=== PATIENT | male | born 1940 | race Caucasian/White ===

== ENCOUNTER → 2017-01-10 | Outpatient (CLI) | payer MEDICARE, BC | END | disposition home or self-care (01) | LOC: PCVCIMAG 08:02 | PROVIDERS: ATTEND Internal Medicine Cardiovascular Disease | DX: I10 Essential (primary) hypertension (principal); E78.00 Pure hypercholesterolemia, unspecified | CPT/HCPCS: 93325; 93351 ==

== ENCOUNTER → 2018-02-20 | Outpatient (CLI) | payer MEDICARE, BC | END | disposition home or self-care (01) | LOC: PCVCIMAG 13:51 | DX: I10 Essential (primary) hypertension (principal); E78.5 Hyperlipidemia, unspecified; I25.10 Atherosclerotic heart disease of native coronary artery without angina pectoris | CPT/HCPCS: 93325; 93351 ==

== ENCOUNTER → 2018-12-11 | Outpatient (CLI) | payer MEDICARE, BC | END | disposition home or self-care (01) | LOC: PCVCCLINIC 12:20 | PROVIDERS: ATTEND Internal Medicine Cardiovascular Disease | DX: I10 Essential (primary) hypertension (principal); E78.5 Hyperlipidemia, unspecified; D64.9 Anemia, unspecified; I65.22 Occlusion and stenosis of left carotid artery; I67.89 Other cerebrovascular disease; M19.90 Unspecified osteoarthritis, unspecified site | CPT/HCPCS: 36415; 80061; 93005; G0463 ==

== ENCOUNTER → 2019-07-26 | Outpatient (CLI) | payer MEDICARE, BC ==
--- NOTE | 2019-07-26 09:49 | PCVCIMAG ---
EXAM: BILATERAL CAROTID DUPLEX INDICATION: Carotid Occlusive Disease. FINDINGS: Doppler Measurements (centimeters per second): RIGHT: Peak CCA-49, Peak ECA-46, Diastolic ICA-18, Peak ICA-64, ICA/CCA Ratio-1.3. LEFT: Peak CCA-69, Peak ECA-63, Diastolic ICA-22, Peak ICA-86, ICA/CCA Ratio-1.2. RIGHT CAROTID: The carotid bulb has mild plaque. The proximal internal carotid artery shows <40% stenosis. The common carotid artery shows no significant stenosis. The external carotid artery shows no significant stenosis. LEFT CAROTID: The carotid bulb has mild plaque. The proximal internal carotid artery shows <40% stenosis. The common carotid artery shows no significant stenosis. The external carotid artery shows no significant stenosis. Antegrade flow in both vertebral arteries. IMPRESSION: <40% stenosis of the right internal carotid artery with mild plaque. <40% stenosis of the left internal carotid artery with mild plaque. LOC:[place] [id number]
--- NOTE | 2019-07-26 11:01 | PCVCIMAG ---
APPROVED REPORT Study performed: 07/26/2019 10:09:41 Exam: Stress Echocardiogram Indication: Hyperlipidemia, Hypertension Patient Location: Echo lab Stress Nurse: Judith Arana RN Status: routine Ht: 5 ft 10 in HR: 69 bpm BP: 122/70 mmHg Rhythm: NSR Procedure The patient underwent an Exercise Stress Test using the Andrea Protocol. Blood pressure, heart rate, and EKG were monitored. An Echocardiogram was performed by instrument technician helper in four stages in quad fashion. At peak stress, four selected images were obtained and placed side by side with resting images for comparison. Stress Test Details Stress Test: Exercise stress testing was performed using a Andrea protocol. HR Resting HR: 69 bpmMax Heart Rate (APMHR): 141 bpm Max HR Achieved: 166 bpmTarget HR (85% APMHR): 119 bpm % of APMHR: 117 Recovery HR: 78 bpm HR response to stress: Normal HR response to stress BP Resting BP: 122/70 mmHg Max BP: 204/70 mmHg Recovery BP: 154/78 mmHg BP response to stress: Normal blood pressure response to stress. ECG Resting ECG: Sinus Rhythm Stress ECG: Sinus Rhythm Arrhythmia: PAC's Recovery ECG: Sinus Rhythm Recovery Arrhythmia: PAC's Clinical Reason for Termination: Maximal effort Exercise duration: 10 min 36 sec Highest Stage Achieved: Stage 4: 4.2 mph at 16% grade. Exercise capacity: 13.40 METs Overall Exercise Capacity for Age: Normal Pre-Stress Echo The resting Echocardiogram showed normal left ventricular contractility with an estimated Ejection Fraction of about 55-60%. Normal wall motion in all segments on baseline images. Post-Stress Echo The stress Echocardiogram showed normal left ventricular contractility with an estimated Ejection Fraction of about 60-65%. Normal augmentation of wall motion in all segments on post stress images. Clinical No clinical or ECG evidence for ischemia. Conclusion Clinical Response: Non-ischemic Exercise Capacity: Average Stress ECG Response: Non-ischemic Stress Echo Images: Non-ischemic The left ventricle is normal in size and wall thickness in both the rest and stress images. Mild mitral and tricuspid regurgitation. Other Information Study Quality: Good <Conclusion> The left ventricle is normal in size and wall thickness in both the rest and stress images. Mild mitral and tricuspid regurgitation.
--- NOTE | 2019-07-26 13:11 | PCVCIMAG ---
EXAM: ULTRASOUND OF THE THYROID INDICATION: Thyroid nodules. FINDINGS: The right thyroid lobe measures 2.1 x 2.7 x 4.5 cm. The left thyroid lobe measures 1.7 x 2.0 x 4.6 cm. 1.3 x 1.2 x 1.9 cm solid nodule mid to lower right thyroid lobe. 0.9 x 1.1 x 1.4 cm partially solid/partially cystic nodule inferior right thyroid lobe. No left thyroid lobe nodules. IMPRESSION: 1.9 cm solid nodule mid to lower right thyroid lobe and 1.4 cm partially solid//partially cystic nodule inferior right thyroid lobe are both indeterminate. Further evaluation by ENT/endocrinology is recommended. LOC:[id number]
== END | disposition home or self-care (01) ==
LOC: PCVCIMAG 09:17
PROVIDERS: ATTEND Internal Medicine Cardiovascular Disease
DX: I65.23 Occlusion and stenosis of bilateral carotid arteries (principal); I08.1 Rheumatic disorders of both mitral and tricuspid valves; I10 Essential (primary) hypertension; E78.5 Hyperlipidemia, unspecified; E04.2 Nontoxic multinodular goiter; G47.00 Insomnia, unspecified; M19.90 Unspecified osteoarthritis, unspecified site; Z96.642 Presence of left artificial hip joint
CPT/HCPCS: 36415; 76536; 80061; 93325; 93351; 93880